=== PATIENT | male | born 1930 | race American Indian/Alaskan Native ===

== ENCOUNTER 2018-05-08 10:06 | Emergency (ER) | payer MEDICARE, OTHER ==
[2018-05-08] MEDS ORDERED: Diphtheria,Pertussis(Acell),Tetanus Vaccine 0.5 ML Syringe IM ONE (10:21)
[2018-05-08] MEDS ORDERED: Lidocaine 1% 10 ML MDV INJECT ONE (10:22)
--- NOTE | 2018-05-08 10:25 | EDM.PDOC ---
ED HPI GENERAL MEDICAL PROBLEM - General Chief Complaint: Head Injury Stated Complaint: AMB Time Seen by Provider: 05/08/18 10:22 Source of Information: Reports: Patient - History of Present Illness INITIAL COMMENTS - FREE TEXT/NARRATIVE: HISTORY AND PHYSICAL: History of present illness: []Patient presents via EMS today He was on [address] and stumbled resulting in fall . 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 Past medical history: As per history of present illness and as reviewed below otherwise noncontributory. Surgical history: As per history of present illness and as reviewed below otherwise noncontributory. Social history: No reported history of drug or alcohol abuse. Family history: As per history of present illness and as reviewed below otherwise noncontributory. Physical exam: HEENT: Atraumatic, normocephalic, pupils reactive, negative for conjunctival pallor or scleral icterus, mucous membranes moist, throat clear, neck supple, nontender, trachea midline. 2 inch linear laceration right temporal area Lungs: Clear to auscultation, breath sounds equal bilaterally, chest nontender. Heart: S1S2, regular, negative for clicks, rubs, or JVD. Abdomen: Soft, nondistended, nontender. Negative for masses or hepatosplenomegaly. Negative for costovertebral tenderness. Pelvis: Stable nontender. Genitourinary: Deferred. Rectal: Deferred. Extremities: Atraumatic, negative for cords or calf pain. Neurovascular unremarkable. Neuro: Awake, alert, oriented. Cranial nerves II through XII unremarkable. Cerebellum unremarkable. Motor and sensory unremarkable throughout. Exam nonfocal. Skin as per history of present illness otherwiseUnremarkable Diagnostics: [Head CT no contrast Cervical spine no contrast ] Therapeutics: [ tetanus status is updated ]Wound cleansed and explored Lidocaine 3 mL for anesthesia #3 4-0 Prolene sutures interrupted Standard wound care instruction Suture out 5 days Impression: [ 2 inch linear laceration , simple] Definitive disposition and diagnosis as appropriate pending reevaluation and review of above. right head Pain Score (Numeric/FACES): 3 - Related Data Allergies Allergy/AdvReac Type Severity Reaction Status Date / Time No Known Allergies Allergy Verified 05/08/18 10:24 Home Meds: Home Meds . [No Known Home Meds] 08/28/16 [History] Past Medical History - Past Health History Medical/Surgical History: Denies Medical/Surgical History Social & Family History - Family History Family Medical History: Noncontributory ED ROS GENERAL - Review of Systems Review Of Systems: See Below ED EXAM, HEAD INJURY - Physical Exam Exam: See Below Course - Vital Signs Last Recorded V/S: Last Vital Signs Temp 97.8 F 05/08/18 10:10 Pulse 94 05/08/18 10:10 Resp 20 05/08/18 10:10 BP 146/86 H 05/08/18 10:10 Pulse Ox 97 05/08/18 10:10 - Orders/Labs/Meds Orders: Active Orders 24 hr Category Date Time Status Vaccines to be Administered [RC] PER UNIT ROUTINE Care 05/08/18 10:21 Active Meds: Medications Discontinued Medications Generic Name Dose Route Start Last Admin Trade Name Freq PRN Reason Stop Dose Admin Diphtheria/Tetanus/Acell Pertussis 0.5 ml 05/08/18 10:21 Adacel IM 05/08/18 10:22 .ONCE ONE Diphtheria/Tetanus/Acell Pertussis Confirm 05/08/18 11:06 05/08/18 11:26 Adacel Administered 05/08/18 11:07 Not Given Dose 0.5 ml .ROUTE .STK-MED ONE Lidocaine HCl Confirm 05/08/18 10:35 05/08/18 10:48 Xylocaine-Mpf 1% Administered 05/08/18 10:36 Not Given Dose 10 mls @ as directed .ROUTE .STK-MED ONE Lidocaine HCl 10 ml 05/08/18 10:22 05/08/18 10:48 Xylocaine 1% INJECT 05/08/18 10:23 Not Given ONETIME ONE Lidocaine HCl 10 ml 05/08/18 10:48 05/08/18 11:14 Xylocaine-Mpf 1% INJECT 05/08/18 10:49 10 ml ONETIME ONE Administration Departure - Departure Time of Disposition: 11:49 Disposition: Home, Self-Care 01 Condition: Good Clinical Impression: Laceration - Discharge Information Forms: ED Department Discharge Additional Instructions: Keep wound clean and dry for 48 hours Bacitracin and bandaging for right thumb abrasion Return if symptoms persist or worsen or redness warmth or pus drainage should this develop Sutures out in 5 days The following information is given to patients seen in the emergency department who are being discharged to home. This information is to outline your options for follow-up care. We provide all patients seen in our emergency department with a follow-up referral. The need for follow-up, as well as the timing and circumstances, are variable depending upon the specifics of your emergency department visit. If you don't have a primary care physician on staff, we will provide you with a referral. We always advise you to contact your personal physician following an emergency department visit to inform them of the circumstance of the visit and for follow-up with them and/or the need for any referrals to a consulting specialist. The emergency department will also refer you to a specialist when appropriate. This referral assures that you have the opportunity for follow-up care with a specialist. All of these measure are taken in an effort to provide you with optimal care, which includes your follow-up. Under all circumstances we always encourage you to contact your private physician who remains a resource for coordinating your care. When calling for follow-up care, please make the office aware that this follow-up is from your recent emergency room visit. If for any reason you are refused follow-up, please contact the [facility] emergency department at and asked to speak to the emergency department charge nurse. - My Orders Last 24 Hours: My Active Orders 05/08/18 10:21 Vaccines to be Administered [RC] PER UNIT ROUTINE - Assessment/Plan Last 24 Hours: My Active Orders 05/08/18 10:21 Vaccines to be Administered [RC] PER UNIT ROUTINE
[2018-05-08 10:31] VITALS: BP 146/86
[2018-05-08] MEDS ORDERED: Diphtheria,Pertussis(Acell),Tetanus Vaccine 0.5 ML Syringe ONE (11:06)
--- NOTE | 2018-05-08 11:36 | CT ---
EXAMINATION: Non contrast CT head. Coronal and sagittal reformats. HISTORY: Pain FINDINGS: No evidence of intra or extra axial hemorrhage, mass, midline shift, hydrocephalus or edema. There i s moderate generalized atrophy and confluent periventricular white matter hypodensities. No hypoattenuation changes in the major vascular territories to suggest acute infarct. No abnormal intracranial calcifications are detected. Mild internal carotid basilar calcifications. Paranasal sinuses and mastoid air cells are well aerated without substantial findings. Pituitary fossa appears unremarkable. Mild soft tissue swelling within the right frontal temporal reg ion. Orbits and globes are symmetric. Calvarium is intact. No evidence of skull fracture. IMPRESSION: 1. No acute intracranial findings. 2. Generalized atrophy and small vessel ischemic changes.
--- NOTE | 2018-05-08 11:38 | CT ---
EXAMINATION: CT cervical spine HISTORY: Pain COMPARISON: None TECHNIQUE: Axial CT images obtained through the cervical spine without contrast. Coronal and sagittal reconstructions obtained. FINDINGS: There is reversal of the normal cervical lordosis. There is mild compression of the C5 vert ebral body with mild retropulsion, chronic. There is no acute osseous abnormality identified. Bone mi neralization is mildly osteopenic. Moderate degenerative changes noted at C1-C2. There is fusion of t he facets at C3-C4. There is likely at least moderate spinal canal stenosis at C5. Visualized lung ap ices are clear. The paravertebral soft tissues appear normal. IMPRESSION: 1. Moderate degenerative changes within the cervical spine without acute findings.
[2018-05-08] MEDS ORDERED: Bacitracin Oint 1 GM U/D Packet TOP ONE (11:52)
== END 2018-05-08 12:00 | disposition home or self-care (01) ==
LOC: MW.ED 10:06
DX: S06.9X9A Unspecified intracranial injury with loss of consciousness of unspecified duration, initial encounter (principal); S01.01XA Laceration without foreign body of scalp, initial encounter; S60.311A Abrasion of right thumb, initial encounter; Z23 Encounter for immunization; W17.89XA Other fall from one level to another, initial encounter
CPT/HCPCS: 70450; 70450-26; 72125; 72125-26; 90471; 90715; 99284-25

== ENCOUNTER 2018-09-07 12:52 | Emergency (ER) | payer MEDICARE, OTHER ==
[2018-09-07 13:04] VITALS: BP 170/91
--- NOTE | 2018-09-07 13:34 | CR ---
EXAMINATION: Right knee HISTORY: Pain COMPARISON: None TECHNIQUE: 3 views FINDINGS/IMPRESSION: Right total knee hardware is demonstrated in good position and alignment. Joint space narrowing is noted within the patellofemoral compartment. No fracture or acute osseous abnormality or joint effusion. Otherwise osseous structures appear mildly osteopenic.
--- NOTE | 2018-09-07 13:40 | EDM.PDOC ---
ED HPI GENERAL MEDICAL PROBLEM - General Chief Complaint: Lower Extremity Injury/Pain Stated Complaint: FELL Time Seen by Provider: 09/07/18 12:54 Source of Information: Reports: Patient History Limitations: Reports: No Limitations - History of Present Illness INITIAL COMMENTS - FREE TEXT/NARRATIVE: HISTORY AND PHYSICAL: History of present illness: Patient is an 87-year-old male who presents to the emergency room via ground EMS after a fall at the halfway. He states that he had tripped and fell on his right knee. He denies hitting his head or any loss of consciousness. He reports he did not want to be evaluated in the emergency room but the staff required that he come to be evaluated. 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 He states he is otherwise healthy and does not take any medications are [id number] supplements/medications. Review of systems: As per history of present illness and below otherwise all systems reviewed and negative. Past medical history: As per history of present illness and as reviewed below otherwise noncontributory. Surgical history: As per history of present illness and as reviewed below otherwise noncontributory. Social history: See social history for further information Family history: As per history of present illness and as reviewed below otherwise noncontributory. Physical exam: General: Well-developed and well-nourished 87-year-old male. Alert and oriented. Nontoxic appearing and in no acute distress. HEENT: Atraumatic, normocephalic, pupils equal and reactive bilaterally, negative for conjunctival pallor or scleral icterus, mucous membranes moist, TMs normal bilaterally, throat clear, neck supple, nontender, trachea midline. No drooling or trismus noted. No meningeal signs. No hot potato voice noted. Lungs: Clear to auscultation, breath sounds equal bilaterally, chest nontender. Heart: S1S2, regular rate and rhythm without overt murmur Abdomen: Soft, nondistended, nontender. Negative for masses or hepatosplenomegaly. Negative for costovertebral tenderness. Pelvis: Stable nontender. Genitourinary: Deferred. Rectal: Deferred. Skin: Intact, warm, dry. No lesions or rashes noted. Extremities: Moves all extremities per self without difficulty or deficits, no soft tissue swelling noted, no pain with palpation, negative for cords or calf pain. Neurovascular unremarkable. Neuro: Awake, alert, oriented. Cranial nerves II through XII unremarkable. Cerebellum unremarkable. Motor and sensory unremarkable throughout. Exam nonfocal. Notes: Patient is adamant that he did not hit his head or have any loss of consciousness. Denies any pain other than the right knee. During our physical examination he has full range of motion movement and is using his right leg to adjust himself in the bed. He is not on any blood thinners. Declines any other imaging other than the right knee. X-ray shows a right total knee hardware in good position and alignment. No fracture, abnormality or effusion noted. He did share this information with the patient. He states he does have a cane at home which she will use to help with ambulation but "I probably don't need it". We reviewed supportive care measures and appropriate follow-up. He voices understanding and is agreeable to plan of care. Denies any further questions or concerns. Diagnostics: Right knee x-ray Therapeutics: Declines Prescription: None Impression: Fall Right knee injury Plan: 1. Rest, ice, and elevate the extremity is able. 2. Tylenol and/or ibuprofen as needed for pain management. 3. Please follow-up with your primary caregiver in the next 1-2 days. Return to the ED as needed and as discussed. Definitive disposition and diagnosis as appropriate pending reevaluation and review of above. Onset: Today Duration: Minutes: Location: Reports: Lower Extremity, Right Right Knee Pain Score (Numeric/FACES): 3 - Related Data Allergies Allergy/AdvReac Type Severity Reaction Status Date / Time No Known Allergies Allergy Verified 09/07/18 12:59 Home Meds: Home Meds . [No Known Home Meds] 08/28/16 [History] Past Medical History - Past Health History Medical/Surgical History: Denies Medical/Surgical History HEENT History: Reports: Hard of Hearing, Impaired Vision - Infectious Disease History Infectious Disease History: Reports: Chicken Pox, Measles - Past Surgical History HEENT Surgical History: Reports: Eye Surgery Musculoskeletal Surgical History: Reports: Knee Replacement, Other (See Below) Other Musculoskeletal Surgeries/Procedures:: bilat knee replacement Social & Family History - Family History Family Medical History: Noncontributory - Tobacco Use Smoking Status *Q: Former Smoker Used Tobacco, but Quit: Yes Month/Year Tobacco Last Used: January 1975 - Recreational Drug Use Recreational Drug Use: No Review of Systems - Review of Systems Review Of Systems: ROS reveals no pertinent complaints other than HPI. ED EXAM, GENERAL - Physical Exam Exam: See Below (See dictation) Course - Vital Signs Last Recorded V/S: Last Vital Signs Temp 97.4 F 09/07/18 12:56 Pulse 94 09/07/18 12:56 Resp 18 09/07/18 12:56 BP 170/91 H 09/07/18 12:56 Pulse Ox 96 09/07/18 12:56 Departure - Departure Time of Disposition: 13:40 Disposition: Home, Self-Care 01 Clinical Impression: Fall Qualifiers: Encounter type: initial encounter Qualified Code(s): W19.XXXA - Unspecified fall, initial encounter Right knee injury Qualifiers: Encounter type: initial encounter Qualified Code(s): S89.91XA - Unspecified injury of right lower leg, initial encounter - Discharge Information Referrals: PCP,None [Primary Care Provider] - Forms: ED Department Discharge Additional Instructions: The following information is given to patients seen in the emergency department who are being discharged to home. This information is to outline your options for follow-up care. We provide all patients seen in our emergency department with a follow-up referral. The need for follow-up, as well as the timing and circumstances, are variable depending upon the specifics of your emergency department visit. If you don't have a primary care physician on staff, we will provide you with a referral. We always advise you to contact your personal physician following an emergency department visit to inform them of the circumstance of the visit and for follow-up with them and/or the need for any referrals to a consulting specialist. The emergency department will also refer you to a specialist when appropriate. This referral assures that you have the opportunity for follow-up care with a specialist. All of these measure are taken in an effort to provide you with optimal care, which includes your follow-up. Under all circumstances we always encourage you to contact your private physician who remains a resource for coordinating your care. When calling for follow-up care, please make the office aware that this follow-up is from your recent emergency room visit. If for any reason you are refused follow-up, please contact the [facility] Emergency Department at and asked to speak to the emergency department charge nurse. [facility] [address] [place] [address] [facility] [address] [place] [id number] 1. Rest, ice, and elevate the extremity is able. 2. Tylenol and/or ibuprofen as needed for pain management. 3. Please follow-up with your primary caregiver in the next 1-2 days. Return to the ED as needed and as discussed.
== END 2018-09-07 14:45 | disposition home or self-care (01) ==
LOC: MW.ED 12:52
DX: S89.91XA Unspecified injury of right lower leg, initial encounter (principal); W01.0XXA Fall on same level from slipping, tripping and stumbling without subsequent striking against object, initial encounter
CPT/HCPCS: 73562-26-RT; 73562-RT; 99283

== ENCOUNTER 2018-12-23 11:39 | Emergency (ER) | payer MEDICARE, OTHER ==
--- NOTE | 2018-12-23 12:10 | EDM.PDOC ---
ED HPI GENERAL MEDICAL PROBLEM - General Chief Complaint: Back Pain or Injury Stated Complaint: INJURED BACK Time Seen by Provider: 12/23/18 11:42 Source of Information: Reports: Patient History Limitations: Reports: No Limitations - History of Present Illness INITIAL COMMENTS - FREE TEXT/NARRATIVE: HISTORY AND PHYSICAL: History of present illness: Patient is an 88-year-old male who presents to the ED today with concern of mid/ lower back injury that occurred 4 days ago. Patient states he was working on cutting some branches when one grandchild released from the tree and he had fallen back on the ground. Patient states he did not hit his head but since then has had mid to low back pain. Patient states the pain is worse when he bends over and better when he stands up or lays down. Patient denies any radiation of the pain and denies any loss or retention of bowel and bladder function or saddle anesthesia. Patient denies any prior injury to the back. Patient denies fever, chills, chest pain, shortness of breath, or cough. Denies headache, neck stiff ness, change in vision, syncope, or near syncope. Denies nausea, vomiting, abdominal pain, diarrhea, constipation, or dysuria. Has not noted any blood in urine or stool. Patient has been eating and drinking appropriately. Review of systems: As per history of present illness and below otherwise all systems reviewed and negative. Past medical history: As per history of present illness and as reviewed below otherwise noncontributory. Surgical history: As per history of present illness and as reviewed below otherwise noncontributory. Social history: See social history for further information Family history: As per history of present illness and as reviewed below otherwise noncontributory. Physical exam: General: Patient is alert, oriented, and in no acute distress. Patient sitting comfortably on exam table. HEENT: Atraumatic, normocephalic, pupils equal and reactive bilaterally, negative for conjunctival pallor or scleral icterus, mucous membranes moist, TMs normal bilaterally, throat clear, neck supple, nontender, trachea midline. No drooling or trismus noted. No meningeal signs. No hot potato voice noted. Lungs: Clear to auscultation, breath sounds equal bilaterally, chest nontender. Heart: S1S2, regular rate and rhythm without overt murmur Abdomen: Soft, nondistended, nontender. Negative for masses or hepatosplenomegaly. Negative for costovertebral tenderness. Pelvis: Stable nontender. Genitourinary: Deferred. Rectal: Deferred. Skin: Intact, warm, dry. No lesions or rashes noted. Extremities: Atraumatic, negative for cords or calf pain. Neurovascular unremarkable. Neuro: Awake, alert, oriented. Cranial nerves II through XII unremarkable. Cerebellum unremarkable. Motor and sensory unremarkable throughout. Exam nonfocal. Notes: Dr. Lowry verbally involved in patient care. I did call and speak to Dr. Taryn MD radiologist who interpreted XR and he does not feel the compression fracture in an acute setting requires CT evaluation. Supportive care measures were reviewed and discussed. Voices understanding and is agreeable to plan of care. Denies any further questions or concerns at this time. Diagnostics: CBC, CMP, UA, EKG, thoracic and lumbar x-ray Therapeutics: None Prescription: Voltaren gel, patient does not want narcotic medication Impression: L2 compression fracture Plan: 1. You can alternate ibuprofen and Tylenol as directed for pain and discomfort. You can alternate heat and/or ice 15 minutes on 15 minutes off for pain and discomfort. 2. Follow-up with primary care provider as discussed. 3. Return to the ED as needed and as discussed. Definitive disposition and diagnosis as appropriate pending reevaluation and review of above. back Pain Score (Numeric/FACES): 7 - Related Data Allergies Allergy/AdvReac Type Severity Reaction Status Date / Time No Known Allergies Allergy Verified 12/23/18 11:56 Home Meds: Home Meds . [No Known Home Meds] 08/28/16 [History] Past Medical History - Past Health History Medical/Surgical History: Denies Medical/Surgical History HEENT History: Reports: Hard of Hearing, Impaired Vision - Infectious Disease History Infectious Disease History: Reports: Measles - Past Surgical History HEENT Surgical History: Reports: Eye Surgery Musculoskeletal Surgical History: Reports: Knee Replacement, Other (See Below) Other Musculoskeletal Surgeries/Procedures:: bilat knee replacement Social & Family History - Family History Family Medical History: Noncontributory - Tobacco Use Smoking Status *Q: Former Smoker Used Tobacco, but Quit: Yes Month/Year Tobacco Last Used: 50 years ago - Recreational Drug Use Recreational Drug Use: No ED ROS GENERAL - Review of Systems Review Of Systems: ROS reveals no pertinent complaints other than HPI. ED EXAM,LOWER BACK PAIN/INJURY - Physical Exam Exam: See Below (see dictation) Course - Vital Signs Last Recorded V/S: Last Vital Signs Temp 36.4 C 12/23/18 11:57 Pulse 98 12/23/18 11:57 Resp 18 12/23/18 11:57 BP 154/104 H 12/23/18 11:57 Pulse Ox 98 12/23/18 11:57 - Orders/Labs/Meds Orders: Active Orders 24 hr Category Date Time Status EKG Documentation Completion [RC] STAT Care 12/23/18 12:07 Active UA W/MICROSCOPIC [URIN] Stat Lab 12/23/18 13:35 Results Labs: Laboratory Tests 12/23/18 12/23/18 12/23/18 Range/Units 12:28 12:28 13:35 WBC 8.65 (4.0-11.0) K/uL RBC 4.76 (4.50-5.90) M/uL Hgb 14.2 (13.0-17.0) g/dL Hct 42.7 (38.0-50.0) % MCV 89.7 (80.0-98.0) fL MCH 29.8 (27.0-32.0) pg MCHC 33.3 (31.0-37.0) g/dL RDW Std Deviation 51.5 (28.0-62.0) fl RDW Coeff of Marizol 16 H (11.0-15.0) % Plt Count 175 (150-400) K/uL MPV 10.50 (7.40-12.00) fL Neut % (Auto) 65.5 (48.0-80.0) % Lymph % (Auto) 21.4 (16.0-40.0) % Thayer % (Auto) 12.1 (0.0-15.0) % Eos % (Auto) 0.9 (0.0-7.0) % Baso % (Auto) 0.1 (0.0-1.5) % Neut # (Auto) 5.7 (1.4-5.7) K/uL Lymph # (Auto) 1.9 (0.6-2.4) K/uL Thayer # (Auto) 1.1 H (0.0-0.8) K/uL Eos # (Auto) 0.1 (0.0-0.7) K/uL Baso # (Auto) 0.0 (0.0-0.1) K/uL Nucleated RBC % 0.0 /100WBC Nucleated RBCs # 0 K/uL Sodium 136 (136-148) mmol/L Potassium 4.1 (3.5-5.1) mmol/L Chloride 103 (98-107) mmol/L Carbon Dioxide 24.7 (21.0-32.0) mmol/L BUN 13 (7.0-18.0) mg/dL Creatinine 1.3 (0.8-1.3) mg/dL Est Cr Clr Drug Dosing 47.42 mL/min Estimated GFR (MDRD) 52.3 ml/min Glucose 106 (74-106) mg/dL Calcium 8.8 (8.5-10.1) mg/dL Total Bilirubin 1.4 H (0.2-1.0) mg/dL AST 20 (15-37) IU/L ALT 17 (14-63) IU/L Alkaline Phosphatase 57 (46-116) U/L Total Protein 7.9 (6.4-8.2) g/dL Albumin 3.8 (3.4-5.0) g/dL Globulin 4.1 H (2.6-4.0) g/dL Albumin/Globulin Ratio 0.9 (0.9-1.6) Urine Color YELLOW Urine Appearance SLT CLOUDY Urine pH 5.0 (5.0-8.0) Ur Specific [place] >= 1.030 (1.001-1.035) Urine Protein 30 H (NEGATIVE) mg/dL Urine Glucose (UA) NEGATIVE (NEGATIVE) mg/dL Urine Ketones TRACE H (NEGATIVE) mg/dL Urine Occult Blood SMALL H (NEGATIVE) Urine Nitrite NEGATIVE (NEGATIVE) Urine Bilirubin SMALL H (NEGATIVE) Urine Urobilinogen 1.0 (<2.0) EU/dL Ur Leukocyte Esterase NEGATIVE (NEGATIVE) Departure - Departure Time of Disposition: 13:55 Disposition: Home, Self-Care 01 Clinical Impression: Compression fracture of L2 lumbar vertebra Qualifiers: Encounter type: initial encounter Qualified Code(s): S32.020A - Wedge compression fracture of second lumbar vertebra, initial encounter for closed fracture - Discharge Information Referrals: PCP,Unknown [Primary Care Provider] - Forms: ED Department Discharge Additional Instructions: The following information is given to patients seen in the emergency department who are being discharged to home. This information is to outline your options for follow-up care. We provide all patients seen in our emergency department with a follow-up referral. The need for follow-up, as well as the timing and circumstances, are variable depending upon the specifics of your emergency department visit. If you don't have a primary care physician on staff, we will provide you with a referral. We always advise you to contact your personal physician following an emergency department visit to inform them of the circumstance of the visit and for follow-up with them and/or the need for any referrals to a consulting specialist. The emergency department will also refer you to a specialist when appropriate. This referral assures that you have the opportunity for follow-up care with a specialist. All of these measure are taken in an effort to provide you with optimal care, which includes your follow-up. Under all circumstances we always encourage you to contact your private physician who remains a resource for coordinating your care. When calling for follow-up care, please make the office aware that this follow-up is from your recent emergency room visit. If for any reason you are refused follow-up, please contact the [facility] Emergency Department at and asked to speak to the emergency department charge nurse. [facility] [address] [place] [id number] [place] [address] 1. You can alternate ibuprofen and Tylenol as directed for pain and discomfort. You can alternate heat and/or ice 15 minutes on 15 minutes off for pain and discomfort. 2. Follow-up with primary care provider as discussed. 3. Return to the ED as needed and as discussed. - My Orders Last 24 Hours: My Active Orders 12/23/18 12:07 EKG Documentation Completion [RC] STAT 12/23/18 13:35 UA W/MICROSCOPIC [URIN] Stat - Assessment/Plan Last 24 Hours: My Active Orders 12/23/18 12:07 EKG Documentation Completion [RC] STAT 12/23/18 13:35 UA W/MICROSCOPIC [URIN] Stat
--- NOTE | 2018-12-23 13:36 | CR ---
HISTORY: Fall. TECHNIQUE: Two views of the lumbar spine. COMPARISON: No prior. FINDINGS: There is a mild wedge compression deformity of L2. The lumbar vertebral body height is otherwise maintained. 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 No significant lumbar malalignment. Aortic atherosclerotic vascular calcifications. IMPRESSION: 1. Mild compression fracture of L2. 2. 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 Dictated by Jose Centeno MD @ 12/23/2018 1:35:05 PM Dictated by: Jose Centeno MD @ 12/23/2018 13:35:08 (Electronically Signed)
--- NOTE | 2018-12-23 13:40 | CR ---
HISTORY: Fall. TECHNIQUE: Two views of the thoracic spine. COMPARISON: No prior. FINDINGS: There is no acute thoracic fracture or thoracic malalignment. Degenerative disc disease is present within the thoracic spine. IMPRESSION: No acute thoracic fracture or thoracic malalignment. Dictated by Jose Centeno MD @ 12/23/2018 1:38:25 PM Dictated by: Jose Centeno MD @ 12/23/2018 13:38:28 (Electronically Signed)
[2018-12-23 14:24] VITALS: BP 116/89
== END 2018-12-23 14:24 | disposition home or self-care (01) ==
LOC: MW.ED 11:39
DX: S32.029A Unspecified fracture of second lumbar vertebra, initial encounter for closed fracture (principal); Z87.891 Personal history of nicotine dependence; W14.XXXA Fall from tree, initial encounter; Y93.89 Activity, other specified
CPT/HCPCS: 36415; 72072; 72072-26; 72100; 72100-26; 80053; 81001; 85025; 93005; 99284-25